=== PATIENT | female | born 1990 | race Caucasian/White ===

== ENCOUNTER 2016-08-15 07:44 | Day surgery (SDC) | payer MEDICARE ==
[2016-08-15] MEDS ORDERED: Lactated Ringers 1,000 ML IV SCH (08:45)
--- NOTE | 2016-08-15 10:17 | PCM.HP ---
H&P History of Present Illness - General Date of Service: 08/15/16 Admit Problem/Dx: Admission Diagnosis/Problem Admission Diagnosis/Problem Laparoscopic cholecystectomy Source of Information: Patient, Old records History Limitations: Reports: No limitations - History of Present Illness Initial Comments - Free Text/Narative: Here for lap corey for Chronic Cholecystitis - Related Data Allergies/Adverse Reactions: Allergies Allergy/AdvReac Type Severity Reaction Status Date / Time No Known Allergies Allergy Verified 08/15/16 08:15 Home Medications: Home Meds Acetaminophen/HYDROcodone [[place] 325-5 MG] 5 - 325 mg PO Q4H PRN 08/14/16 [ History] Etonogestrel [Nexplanon] 68 mg SQ ASDIRECTED 08/14/16 [History] Sertraline [Zoloft] 100 mg PO DAILY 08/14/16 [History] Past Medical History Cardiovascular History: Reports: Heart murmur [employer] History: Reports: Musculoskeletal History: Reports: Back pain, chronic Neurological History: Reports: Cerebral palsy Psychiatric History: Reports: Depression Social & Family History - Tobacco Use Smoking Status *Q: Former Smoker Used Tobacco, but Quit: Yes Month Tobacco Last Used: 3 YEARS AGO - Caffeine Use Caffeine Use: Reports: Coffee, Soda, Tea - Recreational Drug Use Recreational Drug Use: No H&P Review of Systems - Review of Systems: Review Of Systems: ROS reveals no pertinent complaints other than HPI. Exam - Exam Exam: See Below - Vital Signs Vital Signs: Last Vital Signs Temp 98.1 F 08/15/16 08:20 Pulse 65 08/15/16 08:20 Resp 15 08/15/16 08:20 BP 121/63 08/15/16 08:20 Pulse Ox 96 08/15/16 08:20 Weight: 98.43 kg - Exam General: alert, oriented Lungs: Clear to auscultation, Normal respiratory effort Cardiovascular: regular rate, regular rhythm Abdomen: soft, tenderness (in RUQ) - Patient Data Lab Results last 24 hrs: Laboratory Results - last 24 hr 08/15/16 Range/Units 08:05 Urine HCG, Qual Negative (NEGATIVE) *Q Meaningful Use (ADM) - VTE *Q VTE Criteria *Q: - Stroke *Q Stroke Criteria *Q: - AMI *Q AMI Criteria *Q: Problem List Initiated/Reviewed/Updated: Yes Orders Last 24hrs: Active Orders 24 hr Category Date Time Status Patient Status [ADT] Routine ADT 08/15/16 07:45 Ordered Patient to Empty Bladder [RC] ASDIRECTED Care 08/15/16 08:00 Active Verify Patient Consent Obtain [RC] ASDIRECTED Care 08/15/16 08:30 Active Nothing Per Oral Diet [DIET] Diet 08/14/16 Dinner Ordered Lactated Ringers [Ringers, Lactated] 1,000 ml Med 08/15/16 08:45 Active IV ASDIRECTED Peripheral IV Insertion Adult [OM.PC] Routine Oth 08/15/16 08:45 Ordered Sequential Compression Device [OM.PC] Routine Oth 08/15/16 08:30 Ordered Resuscitation Status Routine Resus Stat 08/14/16 10:01 Ordered Medication Orders Lactated Ringer's (Ringers, Lactated) 1,000 mls @ 125 mls/hr IV ASDIRECTED [facility] Last Admin: 08/15/16 08:37 Dose: 125 mls/hr Assessment/Plan Comment:: A) Chronic Cholecystitis P) OK to proceed with lap corey
[2016-08-15] MEDS ORDERED: Ondansetron 4 MG/2 ML SDV IVPUSH PRN ×2 (10:39)
[2016-08-15] MEDS ORDERED: Promethazine 6.25 MG in Sodium Chloride 0.9% 50 ML IV PRN (10:39)
[2016-08-15] MEDS ORDERED: fentaNYL 100 MCG/2 ML SDV IVPUSH PRN (10:39)
[2016-08-15] MEDS ORDERED: fentaNYL 100 MCG/2 ML SDV IV ONE (11:00)
[2016-08-15] MEDS ORDERED: Dexamethasone 4 MG/ML 5 ML MDV IVPUSH ONE (11:00)
[2016-08-15] MEDS ORDERED: Lactated Ringers 1,000 ML IV ONE (11:00)
[2016-08-15] MEDS ORDERED: Succinylcholine/Normal Saline 100 MG/5 ML Syringe IV ONE (11:00)
[2016-08-15] MEDS ORDERED: Sugammadex Sodium 200 MG/2 ML VIAL IV ONE (11:00)
[2016-08-15] MEDS ORDERED: Propofol 200 MG/20 ML SDV IV ONE (11:00)
[2016-08-15] MEDS ORDERED: Ketorolac 30 MG/ML SDV IVPUSH ONE (11:00)
[2016-08-15] MEDS ORDERED: Rocuronium 100 MG/10 ML MDV IV ONE (11:00)
[2016-08-15] MEDS ORDERED: Midazolam 1 MG/ML 2 ML SDV IV ONE (11:00)
[2016-08-15] MEDS ORDERED: HYDROmorphone 2 MG/ML SDV IV ONE (11:00)
[2016-08-15] MEDS ORDERED: Ondansetron 4 MG/2 ML SDV IVPUSH ONE (11:00)
--- NOTE | 2016-08-15 12:01 | PCM.OPNOTE ---
- General Post-Op/Procedure Note Date of Surgery/Procedure: 08/15/16 Operative Procedure(s): Lap Reina with Adhesiolysis Findings: Cholecystitis and Adhesions Pre Op Diagnosis: Chronic Cholecystitis Post-Op Diagnosis: Same Anesthesia Technique: General ET tube Primary Surgeon: Ray Zimmerman Anesthesia Provider: Antoine Meadows EBL in mLs: 5 Complications: None Condition: Good
--- NOTE | 2016-08-15 12:38 | OR ---
DATE OF OPERATION: 08/15/2016 SURGEON: Ray Zimmerman MD PREOPERATIVE DIAGNOSIS: Chronic cholecystitis. POSTOPERATIVE DIAGNOSIS: Chronic cholecystitis with adhesions. PROCEDURE: Laparoscopic cholecystectomy with adhesiolysis. ANESTHESIA: General. PROCEDURE IN DETAIL: The patient was brought to the operating room, where general endotracheal anesthesia was administered. Abdomen was prepped with ChloraPrep and draped sterilely. An infraumbilical incision was made and extended into the peritoneal cavity without difficulty. The Antwon cannula later was introduced and pneumoperitoneum obtained. The remaining three 5 mm ports were placed in the usual positions. The patient was replaced in reverse Trendelenburg position and rotated to her left. The gallbladder was covered with adhesions of omentum on its entire inferior surface. These were taken off with blunt dissection and electrocautery to totally expose the gallbladder. This took about 15 minutes to expose the gallbladder completely. At that point, the anatomy was somewhat atypical and that the gallbladder was turned upon itself. Careful dissection was used to separate the gallbladder from itself to expose the ampulla and cystic duct. Cystic artery was also identified. The artery was doubly clipped proximally and then distally and then transected. This did aid in visualizing the gallbladder and exposing it better. Once the cystic duct was completely dissected free, and could be seen entering the gallbladder and extending towards the common bile duct, this was doubly clipped proximally and once distally and then transected. The gallbladder was then removed from the bed of the liver using electrocautery. Gallbladder was brought out through the umbilical port site. Right upper quadrant was thoroughly inspected and irrigated and return was clear and hemostasis was assured. Ports were removed under direct vision and remained hemostatic. Umbilical fascia was closed with [id number] 0 Vicryl. Skin was closed with 4-0 Vicryl subcuticular sutures. Benzoin and Steri-Strips were placed and Band-Aids applied. The patient tolerated the procedure well. Estimated blood loss was 5 mL. She returned to postanesthesia in stable condition. /[id number] TRINO/RUSS
[2016-08-15] MEDS ORDERED: Acetaminophen/HYDROcodone 325-5 MG Tab PO ONE (13:25)
[2016-08-15 15:29] VITALS: BP 117/64
== END 2016-08-15 15:10 | disposition home or self-care (01) ==
LOC: FB.SDS 07:44
PROVIDERS: ATTEND Surgery
PROC: 0FT44ZZ Resection of Gallbladder, Percutaneous Endoscopic Approach (ICD-10-PCS; principal; 2016-08-15)
DX: K81.1 Chronic cholecystitis (principal); K82.8 Other specified diseases of gallbladder; G80.9 Cerebral palsy, unspecified
CPT/HCPCS: 00790; 47562; 81025; 88304; A9270; J0330; J1100; J1170; J1885; J2250; J2405; J2704; J3010; J7120